=== PATIENT | male | born 2000 | race American Indian/Alaskan Native ===

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

== ENCOUNTER 2020-06-12 21:03 | Emergency (ER) | payer SELFPAY ==
[2020-06-12 23:00] VITALS: BP 100/85
--- NOTE | 2020-06-12 23:05 | Emergency Department Report ---
ED Back Pain/Injury HPI - General Stated Complaint: LOWER BACK PAIN Time Seen by Provider: 06/12/20 22:58 Source: patient Mode of arrival: Ambulatory Limitations: No Limitations - History of Present Illness Initial Comments: 20-year-old male with no significant past medical history presents to the ER today with complaints of low back pain. Patient states that his back pain star isaiah after he was helping his son move furniture yesterday. Patient states that he thought the pain would go away but he still hurting today. He states that pain is worse with certain movements. He denies any radiation of the pain. He denies any associated abdominal pain, bowel or bladder incontinence, urinary retention or constipation, lower extremity weakness, numbness or tingling. Denies any history of back pain in the past. He states that he is not try taking anything for the pain. MD Complaint: back pain, back injury -: Gradual (yesterday ) - Related Data Previous Rx's Medication Instructions Recorded Last Taken Type ALPRAZolam [Xanax TAB] 0.25 mg PO BID PRN #4 tab 05/25/19 Unknown Rx Ibuprofen [Motrin] 600 mg PO Q8H PRN #30 tablet 06/12/20 Unknown Rx methOCARBAMOL [Robaxin TAB] 500 mg PO TID PRN #30 tab 06/12/20 Unknown Rx Allergies Allergy/AdvReac Type Severity Reaction Status Date / Time No Known Allergies Allergy Unverified 05/25/19 13:01 ED Review of Systems ROS: Stated complaint: LOWER BACK PAIN Other details as noted in HPI Comment: All other systems reviewed and negative Gastrointestinal: denies: abdominal pain, nausea, diarrhea Genitourinary: denies: urgency, dysuria, frequency, hematuria, discharge, testicular pain, testicular mass Musculoskeletal: back pain. denies: joint swelling, arthralgia Skin: denies: rash, lesions Neurological: denies: headache, weakness, numbness, paresthesias, confusion, abnormal gait, vertigo Psychiatric: denies: anxiety, depression Hematological/Lymphatic: denies: easy bleeding, easy bruising ED Past Medical Hx - Social History Smoking Status: Current Some Day Smoker Substance Use Type: Alcohol, Marijuana - Medications Home Medications: Home Medications Medication Instructions Recorded Confirmed Last Taken Type ALPRAZolam [Xanax TAB] 0.25 mg PO BID PRN #4 tab 05/25/19 Unknown Rx Ibuprofen [Motrin] 600 mg PO Q8H PRN #30 tablet 06/12/20 Unknown Rx methOCARBAMOL [Robaxin TAB] 500 mg PO TID PRN #30 tab 06/12/20 Unknown Rx ED Physical Exam - General General appearance: alert, in no apparent distress - Head Head exam: Present: atraumatic, normocephalic, normal inspection - Eye Eye exam: Present: normal appearance, PERRL, EOMI Pupils: Present: normal accommodation - Respiratory Respiratory exam: Absent: respiratory distress - Cardiovascular Cardiovascular Exam: Present: regular rate - GI/Abdominal GI/Abdominal exam: Present: soft. Absent: distended, tenderness, guarding, rebound - Back Exam Back exam: Present: normal inspection, full ROM, paraspinal tenderness (Lumbar area, mild). Absent: vertebral tenderness - Neurological Exam Neurological exam: Present: alert, oriented X3, CN II-XII intact, normal gait - Psychiatric Psychiatric exam: Present: normal affect, normal mood - Skin Skin exam: Present: intact ED Course Vital Signs 06/12/20 22:56 Temperature 97.9 F Pulse Rate 65 Respiratory 18 Rate Blood Pressure 100/85 O2 Sat by Pulse 98 Oximetry ED Medical Decision Making - Medical Decision Making The patient presented with acute back pain. The patient is resting comfortably and , is alert, talkative, interactive and in no distress. The patient is neurologically intact and is ambulatory in the ED. the patient has no fever, no bowel or bladder incontinence, no saddle anesthesia and is otherwise alert and well-appearing. With history, physical examination and diagnostic testing does not suggest the presence of acute spinal epidural abscess, acute epidural bleed, cauda equina syndrome, abdominal/thoracic aortic aneurysm, aortic dissection or other acute process requiring further testing, treatment or consultation in the emergency department. The vital signs have been stable. The patient condition is stable and appropriate for discharge. The patient will pursue further outpatient evaluation with the primary care physician. Critical care attestation.: If time is entered above; I have spent that time in minutes in the direct care of this critically ill patient, excluding procedure time. ED Disposition Clinical Impression: Lumbar strain Disposition: DC-01 TO HOME OR SELFCARE Is pt being admited?: No Does the pt Need Aspirin: No Condition: Stable Instructions: Lumbar Strain Additional Instructions: Take the motrin and the muscle relaxer as prescribed. Follow up with PCP in 1 week. Return to ED if symptoms worsens or changes. Prescriptions: Ibuprofen [Motrin] 600 mg PO Q8H PRN #30 tablet PRN Reason: Pain methOCARBAMOL [Robaxin TAB] 500 mg PO TID PRN #30 tab PRN Reason: Spasms Referrals: MARTHA PENA MD [Staff Physician] - 3-5 Days Forms: Work/School Release Form(ED) Time of Disposition: 23:05
== END 2020-06-12 23:33 | disposition home or self-care (01) ==
LOC: ED 21:03
DX: S39.012A Strain of muscle, fascia and tendon of lower back, initial encounter (principal); Z79.899 Other long term (current) drug therapy; X58.XXXA Exposure to other specified factors, initial encounter; Y93.89 Activity, other specified; Y92.89 Other specified places as the place of occurrence of the external cause; Y99.8 Other external cause status
CPT/HCPCS: 99282

== ENCOUNTER 2020-08-23 00:08 | Emergency (ER) | payer SELFPAY ==
[2020-08-23 02:34] VITALS: BP 116/78
--- NOTE | 2020-08-23 03:48 | XRay Report ---
HISTORY:Left small toe pain and swelling. COMPARISON: None. TECHNIQUE: AP lateral and obliques views were obtained FINDINGS: Bones: No fracture or dislocation. Joint spaces: Maintained. Soft tissues: No significant abnormality. Additional findings: None. IMPRESSION: 1. No significant abnormality. Signer Name: Anirudh Colindres MD Signed: 08/23/2020 3:44 AM Workstation Name: [id number]
--- NOTE | 2020-08-23 05:34 | Emergency Department Report ---
ED Lower Extremity HPI - General Chief Complaint: Extremity Injury, Lower Stated Complaint: FALL;TOE SWELLING Time Seen by Provider: 08/23/20 04:50 Source: patient Mode of arrival: Ambulatory Limitations: No Limitations - History of Present Illness Initial Comments: 21 as well as his mother department complaining of left toe pain following a head injury was playing with a sibling and accidentally hit the corner of the bed frame please episodes and pain dull throbbing and mild swelling. Report no deformity.. The pain is dull and throbbing and worse with palpation and range of motion. MD Complaint: foot injury -: Gradual Injury: Toes: Left Type of Injury: blunt Place: home Improves With: nothing Worsens With: nothing Context: direct blow Associated Symptoms: able to partially bear weight - Related Data Previous Rx's Medication Instructions Recorded Last Taken Type ALPRAZolam [Xanax TAB] 0.25 mg PO BID PRN #4 tab 05/25/19 Unknown Rx Ibuprofen [Motrin] 600 mg PO Q8H PRN #30 tablet 06/12/20 Unknown Rx methOCARBAMOL [Robaxin TAB] 500 mg PO TID PRN #30 tab 06/12/20 Unknown Rx Allergies Allergy/AdvReac Type Severity Reaction Status Date / Time No Known Allergies Allergy Unverified 05/25/19 13:01 ED Review of Systems ROS: Stated complaint: FALL;TOE SWELLING Other details as noted in HPI Comment: All other systems reviewed and negative ED Past Medical Hx - Past Medical History Previous Medical History?: No - Surgical History Past Surgical History?: No - Social History Smoking Status: Never Smoker Substance Use Type: None - Medications Home Medications: Home Medications Medication Instructions Recorded Confirmed Last Taken Type ALPRAZolam [Xanax TAB] 0.25 mg PO BID PRN #4 tab 05/25/19 Unknown Rx Ibuprofen [Motrin] 600 mg PO Q8H PRN #30 tablet 06/12/20 Unknown Rx methOCARBAMOL [Robaxin TAB] 500 mg PO TID PRN #30 tab 06/12/20 Unknown Rx ED Physical Exam - General Limitations: No Limitations General appearance: alert, in no apparent distress - Head Head exam: Present: atraumatic, normocephalic - Eye Eye exam: Present: normal appearance, PERRL, EOMI Pupils: Present: normal accommodation, irregular - ENT ENT exam: Present: normal exam, mucous membranes moist, TM's normal bilaterally - Neck Neck exam: Present: normal inspection, full ROM - Respiratory Respiratory exam: Present: normal lung sounds bilaterally. Absent: respiratory distress, wheezes, rales - Cardiovascular Cardiovascular Exam: Present: regular rate, normal rhythm. Absent: systolic murmur, diastolic murmur, rubs, gallop - GI/Abdominal GI/Abdominal exam: Present: soft, normal bowel sounds - Rectal Rectal exam: Present: deferred - Extremities Exam Extremities exam: Present: normal inspection, full ROM, tenderness, normal capillary refill - Expanded Lower Extremity Exam Left Foot/Toe exam: Present: tenderness, tenderness at base of 5th metatarsal. Absent: amputation, puncture wound Neuro vascular tendon exam: Present: no vascular compromise - Back Exam Back exam: Present: normal inspection, full ROM. Absent: CVA tenderness (R), CVA tenderness (L) - Neurological Exam Neurological exam: Present: alert, oriented X3, CN II-XII intact - Psychiatric Psychiatric exam: Present: normal affect, normal mood. Absent: anxious, flat affect, manic - Skin Skin exam: Present: warm, dry, intact, normal color. Absent: rash, cyanosis, diaphoretic ED Course Vital Signs 08/23/20 02:33 Temperature 98.5 F Pulse Rate 80 Respiratory 18 Rate Blood Pressure 116/78 [Left] O2 Sat by Pulse 100 Oximetry ED Lower Extremity MDM - Radiology Data Radiology results: report reviewed [address] [place] [id number] XRay Report Signed Patient: ESTER WHITTAKER MR# : [id number] : 2000 Acct:[id number] Age/Sex: 20 / M ADM Date: 08/23/20 Loc: ED Attending Dr: Ordering Physician: ED MD NICOLE Date of Service: 08/23/20 Procedure(s): XR foot 3+V LT Accession Number(s): [id number] cc: ED MD NICOLE Fluoro Time In Minutes: HISTORY:Left small toe pain and swelling. COMPARISON: None. TECHNIQUE: AP lateral and obliques views were obtained FINDINGS: Bones: No fracture or dislocation. Joint spaces: Maintained. Soft tissues: No significant abnormality. Additional findings: None. IMPRESSION: 1. No significant abnormality. Signer Name: Anirudh Colindres MD Signed: 08/23/2020 3:44 AM Workstation Name: [id number] Transcribed By: SAADIA Dictated By: Anirudh Colindres MD Electronically Authenticated By: Anirudh Colindres MD Signed Date/Time: 08/23/20343 DD/ 3 TD/TT: Print Cancel - Medical Decision Making 20-year-old F [place] male status post blunt toe injury x-ray reveals no fracture plan is ice therapy and maintain routine follow-up Critical care attestation.: If time is entered above; I have spent that time in minutes in the direct care of this critically ill patient, excluding procedure time. ED Disposition Clinical Impression: Contusion, toe Disposition: DC-01 TO HOME OR SELFCARE Is pt being admited?: No Does the pt Need Aspirin: No Condition: Stable Instructions: Contusion, [id number], Contusion, How to Use Cold Therapy [facility] Care Provider] - 3-5 Days [facility] [Provider Group] - 3-5 Days
== END 2020-08-23 06:03 | disposition home or self-care (01) ==
LOC: ED 00:08
DX: S90.122A Contusion of left lesser toe(s) without damage to nail, initial encounter (principal); Z79.899 Other long term (current) drug therapy; W18.39XA Other fall on same level, initial encounter; Y93.89 Activity, other specified; Y92.89 Other specified places as the place of occurrence of the external cause; Y99.8 Other external cause status
CPT/HCPCS: 99283